=== PATIENT | male | born 1990 | race American Indian/Alaskan Native ===

== ENCOUNTER 2016-10-28 11:08 | Emergency (ER) | payer SELFPAY ==
--- NOTE | 2016-10-28 12:13 | Emergency Department Report ---
- General Chief complaint: Skin/Abscess/Foreign Body Stated complaint: BOIL/BACK Time Seen by Provider: 10/28/16 12:02 Source: patient Mode of arrival: Ambulatory Limitations: No Limitations - History of Present Illness Initial comments: 18-year-old male past medical history none presents with complaint of 3-4 days of boil to his left upper back region. Patient denies fevers or chills. States that he has noticed a lump on his skin in his upper back which is slightly red on the outside. Denies any history of staph or MRSA. States he hasn't had small cyst on his skin prior to this. MD complaint: abscess/boil Onset/Timin Severity: mild Severity scale (0 -10): 3 Quality: aching Worsens with: none Associated symptoms: denies other symptoms - Related Data Previous Rx's Medication Instructions Recorded Last Taken Type Ibuprofen [Motrin] 600 mg PO Q8H PRN #25 tablet 10/28/16 Unknown Rx Allergies Allergy/AdvReac Type Severity Reaction Status Date / Time No Known Allergies Allergy Unverified 10/28/16 11:45 Abscess Boil HPI - HPI Chief Complaint: Skin/Abscess/Foreign Body Stated Complaint: BOIL/BACK Time Seen by Provider: 10/28/16 12:02 Home Medications: Previous Rx's Medication Instructions Recorded Last Taken Type Ibuprofen [Motrin] 600 mg PO Q8H PRN #25 tablet 10/28/16 Unknown Rx Allergies/Adverse Reactions: Allergies Allergy/AdvReac Type Severity Reaction Status Date / Time No Known Allergies Allergy Unverified 10/28/16 11:45 ED Review of Systems ROS: Stated complaint: BOIL/BACK Other details as noted in HPI Constitutional: denies: chills, fever Eyes: denies: eye pain, eye discharge, vision change ENT: denies: ear pain, throat pain Respiratory: denies: cough, shortness of breath, wheezing Cardiovascular: denies: chest pain, palpitations Endocrine: no symptoms reported Gastrointestinal: denies: abdominal pain, nausea, diarrhea Genitourinary: denies: urgency, dysuria Musculoskeletal: denies: back pain, joint swelling, arthralgia Skin: as per HPI. denies: rash, lesions Neurological: denies: headache, weakness, paresthesias Psychiatric: denies: anxiety, depression Hematological/Lymphatic: denies: easy bleeding, easy bruising ED Past Medical Hx - Past Medical History Previous Medical History?: No - Surgical History Past Surgical History?: No - Social History Smoking Status: Never Smoker Substance Use Type: None - Medications Home Medications: Home Medications Medication Instructions Recorded Confirmed Last Taken Type Ibuprofen [Motrin] 600 mg PO Q8H PRN #25 tablet 10/28/16 Unknown Rx ED Physical Exam - General Limitations: No Limitations General appearance: alert, in no apparent distress - Head Head exam: Present: atraumatic, normocephalic - Eye Eye exam: Present: normal appearance, PERRL, EOMI - ENT ENT exam: Present: mucous membranes moist - Neck Neck exam: Present: normal inspection - Respiratory Respiratory exam: Present: normal lung sounds bilaterally. Absent: respiratory distress - Cardiovascular Cardiovascular Exam: Present: regular rate, normal rhythm. Absent: systolic murmur, diastolic murmur, rubs, gallop - GI/Abdominal GI/Abdominal exam: Present: soft, normal bowel sounds - Rectal Rectal exam: Present: deferred - Extremities Exam Extremities exam: Present: normal inspection - Back Exam Back exam: Present: normal inspection - Neurological Exam Neurological exam: Present: alert, oriented X3 - Psychiatric Psychiatric exam: Present: normal affect, normal mood - Skin Skin exam: Present: warm, dry, intact, normal color. Absent: rash - Expanded Skin Exam Expanded Type of lesion: Present: abscess Description of rash: Present: size (approximately 4 cm in size), swelling (mild swelling and fluctuance directly over abscess/sebaceous cyst site) 1 - 4 cm abscess here not overlying the midline spine on left upper scapular region, no surrounding cellulitis, palpable fluctuance and center ED Course Vital Signs 10/28/16 11:41 Temperature 98.7 F Pulse Rate 78 Respiratory 20 Rate Blood Pressure 124/78 O2 Sat by Pulse 98 Oximetry - I & D Left Upper Back Type of Procedure: Simple Site: left upper scapular region below shoulder to the left of the thoracic spine Blade Size: 11 I & D Procedure: betadine prep, sterile drapes applied, sterile dressing applied , gauze wick placed (approximately 4 inches of 1 inch iodoform gauze packed into the wound) Progress: Area infiltrated with lidocaine 2% with epinephrine and good anesthesia achieved single vertical 2 cm incision made moderate amount of purulent drainage. approximately 4-5 mL mixed with sebaceous cyst material. Cavity irrigated with 10 mL flush, 4 inches of iodoform gauze wick placed. Covered with 4 x 4 gauze afterwards. Procedure tolerated well significant decrease in fluctuance and swelling ED Medical Decision Making - Medical Decision Making A/P: Left upper back Abscess 1-as abscess was well demarcated with no surrounding cellulitis and mixed in with sebaceous material will not give antibiotics as incision and drainage should be sufficient for resolution 2-Motrin 600 when necessary 3-I advised patient to remove gauze wick that I placed into wound this evening. I advised patient to not leave it in for more than 12-24 hours and to remove it at home. 4-I advised patient that should he experience reaccumulation of abscess if redness develops around site he develops fevers or chills or becomes very painful or bleeds excessively to return to the ED. Patient stated he understood. Critical care attestation.: If time is entered above; I have spent that time in minutes in the direct care of this critically ill patient, excluding procedure time. ED Disposition Clinical Impression: Abscess Disposition: DC- TO HOME OR SELFCARE Is pt being admited?: No Does the pt Need Aspirin: No Condition: Stable Instructions: Abscess (ED), Abscess Incision and Drainage (ED), Acute Wound Care (ED) Prescriptions: Ibuprofen [Motrin] 600 mg PO Q8H PRN #25 tablet PRN Reason: Pain Referrals: [facility] [Provider Group] - 3-5 Days Forms: Work/School Release Form(ED) Time of Disposition: 13:06
[2016-10-28] MEDS ORDERED: XYLOCAINE 2%/EPI 1:100,000 INFILTRATI ONE (12:21)
[2016-10-28] MEDS ORDERED: MOTRIN PO ONE (12:22)
[2016-10-28 13:17] VITALS: BP 132/89
== END 2016-10-28 13:16 | disposition home or self-care (01) ==
LOC: ED 11:08
DX: L02.212 Cutaneous abscess of back [any part, except buttock and flank] (principal)
CPT/HCPCS: 99282

== ENCOUNTER 2016-11-07 10:57 | Emergency (ER) | payer SELFPAY ==
[2016-11-07 11:07] VITALS: BP 121/83
--- NOTE | 2016-11-07 13:04 | Emergency Department Report ---
ED Headache HPI - General Chief Complaint: Headache Stated Complaint: HEADACHE/BACK PAIN Time Seen by Provider: 11/07/16 12:37 Source: patient - History of Present Illness Initial Comments: Patient comes into the ER today with complaints of bilateral temporal headache for the past 4 days. Patient denies any injury, vision changes, nausea, vomiting. Patient denies any significant history of headaches and came in simply because he was concerned as it is anything serious might be going on. Patient further notes that he is never had a headache like this Timing/Duration: other (4 days) Allergies/Adverse Reactions: Allergies No Known Allergies Allergy (Verified 11/07/16 11:02) Home Medications: Ambulatory Orders Amoxicillin 1,000 mg PO BID #40 capsule 11/07/16 Butalb/Acetamin/Caff 50-325-40 [Fioricet] 1 tab PO Q6HR PRN #15 tab 11/07/16 ED Review of Systems ROS: Stated complaint: HEADACHE/BACK PAIN Other details as noted in HPI Constitutional: fever. denies: chills Eyes: denies: eye pain, eye discharge, vision change ENT: congestion. denies: ear pain, throat pain Respiratory: denies: cough, shortness of breath, wheezing Cardiovascular: denies: chest pain, palpitations Endocrine: no symptoms reported Gastrointestinal: denies: abdominal pain, nausea, diarrhea Genitourinary: denies: urgency, dysuria Musculoskeletal: denies: back pain, joint swelling, arthralgia Skin: denies: rash, lesions Neurological: headache. denies: weakness, paresthesias Psychiatric: denies: anxiety, depression Hematological/Lymphatic: denies: easy bleeding, easy bruising ED Past Medical Hx - Past Medical History Previous Medical History?: No - Surgical History Past Surgical History?: No - Social History Smoking Status: Current Every Day Smoker Substance Use Type: None - Medications Home Medications: Home Medications Medication Instructions Recorded Confirmed Last Taken Type Amoxicillin 1,000 mg PO BID #40 capsule 11/07/16 Unknown Rx Butalb/Acetamin/Caff 50-325-40 1 tab PO Q6HR PRN #15 tab 11/07/16 Unknown Rx [Fioricet] ED Physical Exam - General Limitations: No Limitations General appearance: alert, in no apparent distress - Head Head exam: Present: atraumatic, normocephalic - Eye Eye exam: Present: normal appearance, PERRL, EOMI. Absent: conjunctival injection, periorbital swelling, periorbital tenderness - ENT ENT exam: Present: normal orophraynx, mucous membranes moist, TM's normal bilaterally, normal external ear exam, other (bilateral nasal mucosa redness and turbinate swelling) - Neck Neck exam: Present: normal inspection, full ROM. Absent: tenderness, meningismus, lymphadenopathy, thyromegaly - Respiratory Respiratory exam: Present: normal lung sounds bilaterally. Absent: respiratory distress, wheezes, rales, rhonchi - Cardiovascular Cardiovascular Exam: Present: regular rate, normal rhythm, normal heart sounds. Absent: systolic murmur, diastolic murmur, rubs, gallop - GI/Abdominal GI/Abdominal exam: Present: soft, normal bowel sounds. Absent: distended, tenderness - Rectal Rectal exam: Present: deferred - Extremities Exam Extremities exam: Present: normal inspection, full ROM. Absent: tenderness, pedal edema, joint swelling, calf tenderness - Back Exam Back exam: Present: normal inspection, full ROM. Absent: tenderness, muscle spasm, paraspinal tenderness, vertebral tenderness - Neurological Exam Neurological exam: Present: alert, oriented X3, CN II-XII intact, normal gait, reflexes normal. Absent: motor sensory deficit - Psychiatric Psychiatric exam: Present: normal affect, normal mood - Skin Skin exam: Present: warm, dry, intact, normal color. Absent: rash ED Course Vital Signs 11/07/16 11:04 Temperature 99.0 F Pulse Rate 80 Respiratory 16 Rate Blood Pressure 121/83 O2 Sat by Pulse 98 Oximetry ED Medical Decision Making - Radiology Data Radiology results: report reviewed CT scan of the head without contrast: No acute intracranial normality. 2 cm left maxillary sinus mucous just retention cyst or thickening inferiorly partially imaged. Slight right maxillary, ethmoid and sphenoid sinus mucosal thickening. - Medical Decision Making Patient is nontoxic and hemodynamically stable. CT imaging revealed results reviewed and discussed the patient room. I believe patient's headache is mostly related to his underlying sinus ease. I will prescribe patient some medication for his discomfort as well as antibiotics appropriately. Patient is in agreement with treatment plan patient is stable for discharge. Critical care attestation.: If time is entered above; I have spent that time in minutes in the direct care of this critically ill patient, excluding procedure time. ED Disposition Clinical Impression: Headache, Sinusitis Disposition: DC-01 TO HOME OR SELFCARE Is pt being admited?: No Does the pt Need Aspirin: No Condition: Good Instructions: Acute Headache (ED), Sinusitis (ED) Prescriptions: Amoxicillin 1,000 mg PO BID #40 capsule Butalb/Acetamin/Caff 50-325-40 [Fioricet] 1 tab PO Q6HR PRN #15 tab PRN Reason: Headache Referrals: PRIMARY CARE, [Primary Care Provider] - 3-5 Days Time of Disposition: 14:15
--- NOTE | 2016-11-07 13:55 | Cat Scan Report ---
CT HEAD WITHOUT CONTRAST INDICATION: Headache for 4 days. COMPARISON: None similar at this institution. FINDINGS: Noncontrast head CT demonstrates normal ventricles and sulci without acute or recent infarct, hemorrhage, mass effect or midline shift. No abnormal extra-axial fluid collections. Posterior fossa structures and basilar cisterns appear within normal limits. Symmetric eye globes. Nasal septal deviation. Approximately 2 cm left maxillary sinus mucus retention cyst or thickening inferiorly partially imaged. Slight right maxillary, ethmoid and sphenoid sinus mucosal thickening as well. Clear remainder imaged paranasal sinuses and mastoid air cells. Intact calvarium. Normal overlying scalp soft tissues. CONCLUSION: No acute intracranial CT abnormality with sinus disease noted, as described. Thank you for the opportunity to participate in this patient's care.
== END 2016-11-07 14:25 | disposition home or self-care (01) ==
LOC: ED 10:57
DX: J32.9 Chronic sinusitis, unspecified (principal); F17.200 Nicotine dependence, unspecified, uncomplicated
CPT/HCPCS: 70450; 99283

== ENCOUNTER 2017-01-25 21:02 | Emergency (ER) | payer OTHER ==
[2017-01-26 02:43] VITALS: BP 122/81
[2017-01-26] MEDS ORDERED: PERCOCET 5/325 PO ONE (03:42)
[2017-01-26] MEDS ORDERED: MOTRIN PO ONE (03:42)
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
== END 2017-01-26 06:09 | disposition home or self-care (01) ==
LOC: ED 21:02
DX: S16.1XXA Strain of muscle, fascia and tendon at neck level, initial encounter (principal); F17.200 Nicotine dependence, unspecified, uncomplicated; V49.49XA Driver injured in collision with other motor vehicles in traffic accident, initial encounter; Y93.89 Activity, other specified; Y92.89 Other specified places as the place of occurrence of the external cause; Y99.8 Other external cause status
CPT/HCPCS: 72040; 72100